=== PATIENT | female | born 1995 | race Caucasian/White ===

== ENCOUNTER 2016-10-18 20:49 | Emergency (ER) | payer OTHER, MEDICAID ==
[~2016-10-18] VITALS: Ht 157.5 cm; Wt 73.0 kg
[2016-10-18 20:52] VITALS: BP 121/79; PULSE 114; RESP 20; TEMP 100.4; O2SAT 96
--- NOTE | 2016-10-18 23:49 | PD ---
HPI Chief Complaint: Cold / Flu Symptoms Time Seen by Provider: 23:41 Travel History International Travel<30 days: No Contact w/Intl Traveler<30days: No Traveled to known affect area: No History of Present Illness HPI The patient is a 21-year-old female that complains of some gradual onset left parietal headaches and nausea for a week. She does not have a cough but states when she takes a deep breath it hurts her chest. She denies any fever and denies any vomiting. She does not smoke. PFSH Past Medical History Medical History: Denies Significant Hx Diminished Hearing: No Immunizations Current: Yes Tetanus Vaccination: Unknown Influenza Vaccination: No ?: Unknown LMP: 2 WEEKS AGO : 1 Para: 0 Ectopic : No Ovarian Cysts: No Dilation and Curettage (D&C): No Tubal Ligation: No Past Surgical History Section: No Hysterectomy: No Other Surgery: Yes ([place] teeth extraction) Social History Alcohol Use: No Tobacco Use: No Substance Use: No Allergies-Medications (Allergen,Severity, Reaction): Coded Allergies: No Known Allergies (Verified , 10/18/16) Reported Meds & Prescriptions Reported Meds & Active Scripts Active No Active Prescriptions or Reported Medications Review of Systems Except as stated in HPI: all other systems reviewed are Neg Physical Exam Narrative GENERAL: The patient is alert, oriented 3 in no respiratory distress. Her vital signs show heart rate 114 and temperature 100.4 but are otherwise normal. SKIN: Warm and dry. HEAD: Atraumatic. Normocephalic. EYES: Pupils equal and round. No scleral icterus. No injection or drainage. ENT: No nasal bleeding or discharge. Mucous membranes pink and moist. NECK: Trachea midline. No JVD. CARDIOVASCULAR: Regular rate and rhythm. No murmur appreciated. RESPIRATORY: No accessory muscle use. Clear to auscultation. Breath sounds equal bilaterally. GASTROINTESTINAL: Abdomen soft, non-tender, nondistended. Hepatic and splenic margins not palpable. No guarding or rebound is present. MUSCULOSKELETAL: No obvious deformities. No clubbing. No cyanosis. No edema. NEUROLOGICAL: Awake and alert. No obvious cranial nerve deficits. Motor grossly within normal limits. Normal speech. PSYCHIATRIC: Appropriate mood and affect; insight and judgment normal. Data Data Last Documented VS Vital Signs Date Time Temp Pulse Resp B/P Pulse Ox O2 Delivery O2 Flow Rate FiO2 10/18/16 23:43 Room Air 10/18/16 20:52 100.4 114 20 121/79 96 Orders Urinalysis - C+S If Indicated (10/18/16 23:47) Ed Urine Pregnancytest Poc (10/18/16 23:47) Complete Blood Count With Diff (10/18/16 23:49) Basic Metabolic Panel (Bmp) (10/18/16 23:49) Labs Laboratory Tests Test 10/19/16 00:02 White Blood Count 4.2 TH/MM3 Red Blood Count 4.58 MIL/MM3 Hemoglobin 13.0 GM/DL Hematocrit 39.7 % Mean Corpuscular Volume 86.7 FL Mean Corpuscular Hemoglobin 28.3 PG Mean Corpuscular Hemoglobin 32.7 % Concent Red Cell Distribution Width 12.6 % Platelet Count 183 TH/MM3 Mean Platelet Volume 9.0 FL Neutrophils (%) (Auto) 74.7 % Lymphocytes (%) (Auto) 18.1 % Monocytes (%) (Auto) 6.9 % Eosinophils (%) (Auto) 0.1 % Basophils (%) (Auto) 0.2 % Neutrophils # (Auto) 3.1 TH/MM3 Lymphocytes # (Auto) 0.8 TH/MM3 Monocytes # (Auto) 0.3 TH/MM3 Eosinophils # (Auto) 0.0 TH/MM3 Basophils # (Auto) 0.0 TH/MM3 CBC Comment DIFF FINAL Differential Comment Urine Color YELLOW Urine Turbidity SLIGHT Urine pH 7.0 Urine Specific [place] 1.021 Urine Protein NEG mg/dL Urine Glucose (UA) NEG mg/dL Urine Ketones TRACE mg/dL Urine Occult Blood NEG Urine Nitrite NEG Urine Bilirubin NEG Urine Leukocyte Esterase NEG Urine RBC 0-2 /hpf Urine WBC 3-5 /hpf Urine Squamous Epithelial 6-8 /hpf Cells Urine Amorphous Sediment FEW Urine Bacteria OCC /hpf Microscopic Urinalysis Comment CULT NOT INDICATED Sodium Level 138 MEQ/L Potassium Level 3.3 MEQ/L Chloride Level 102 MEQ/L Carbon Dioxide Level 29.4 MEQ/L Anion Gap 7 MEQ/L Blood Urea Nitrogen 9 MG/DL Creatinine 0.75 MG/DL Estimat Glomerular Filtration 98 ML/MIN Rate Random Glucose 134 MG/DL Calcium Level 8.8 MG/DL MDM Medical Decision Making Medical Screen Exam Complete: Yes Emergency Medical Condition: Yes Medical Record Reviewed: Yes Interpretation(s) The urine test was negative. The CBC is normal with a somewhat low normal white count of 4200. The basic metabolic profile shows a potassium of 3.3 but is otherwise unremarkable. The urine shows trace ketones but is otherwise normal and culture is not indicated. Differential Diagnosis Viral syndrome, , urinary tract infection, dehydration, electrolyte disorder Narrative Course The patient appears to have a viral syndrome. The low white count and lack of physical findings for bacterial illness suggest virus. Diagnosis Primary Impression: Viral syndrome Additional Instructions: As we discussed, your potassium is minimally low and so you should drink fruit juices. This is good when you have a virus also. Med/Other Pt SpecificInfo: Prescription(s) given Scripts Promethazine (Phenergan)25 Mg Tab25 Mg PO Q6H PRN (Nausea/Vomiting) #20 TAB Ref 0 Prov:Alek Johnson MD 10/19/16 Disposition: 01 DISCHARGE HOME Condition: Stable Alek Johnson MD Oct 18, 2016 23:48
[2016-10-19 00:27] LABS: BLOOD, URINE NEG (NEG); GLUCOSE,URINE NEG (NEG); KETONE, URINE TRACE mg/dL (NEG); NITRITE,URINE NEG (NEG)
[2016-10-19 00:28] LABS: AUTOMATED NEUTROPHIL # 3.1 TH/MM3 (1.8-7.7); BASOPHIL % 0.2 % (0.0-2.0); EOSINOPHIL % 0.1 % (0.0-4.0); HEMATOCRIT 39.7 % (35.0-46.0); HEMO FLAGS DIFF FINAL; LYMPH % 18.1 % (9.0-44.0); LYMPHOCYTE # 0.8 TH/MM3 (1.0-4.8); MEAN CELL VOLUME 86.7 FL (80.0-100.0); MEAN CORPUSCULAR HEMOGLOBIN 28.3 PG (27.0-34.0); MEAN CORPUSCULAR HGB CONC 32.7 % (32.0-36.0); MONO % 6.9 % (0.0-8.0); NEUT % 74.7 % (16.0-70.0); PLATELET COUNT 183 TH/MM3 (150-450); RED BLOOD COUNT 4.58 MIL/MM3 (4.00-5.30); RED CELL DISTRIBUTION WIDTH 12.6 % (11.6-17.2); WHITE BLOOD COUNT 4.2 TH/MM3 (4.0-11.0)
[2016-10-19 00:33] LABS: BACTERIA, URINE OCC /hpf; RBC, URINE 0-2 /hpf (0-3); URINE COLOR YELLOW (YELLW/STRAW)
[2016-10-19 00:34] LABS: COMMENT (UR) CULT NOT INDICATED; CULTURE IF INDICATED CULT NOT INDICATED
[2016-10-19 00:35] LABS: POTASSIUM 3.3 MEQ/L (3.5-5.1)
[2016-10-19 00:38] LABS: BICARBONATE 29.4 MEQ/L (21.0-32.0)
[2016-10-19] MEDS ORDERED: PROM25TA5 PO (00:57)
[2016-10-19] MEDS ORDERED: POTASSIUM CHLORIDE 20 MEQ CONTROLLED RELEASE TAB PO ONE (01:00)
[2016-10-19 01:15] VITALS: BP 108/69; TEMP 99.7
== END 2016-10-19 01:31 | disposition home or self-care (01) ==
LOC: PHED 20:49
DX: B34.9 Viral infection, unspecified (principal)
CPT/HCPCS: 80048; 81001; 84703; 85025; 99284

== ENCOUNTER 2017-01-16 15:54 | Emergency (ER) | payer OTHER, MEDICAID ==
[~2017-01-16] VITALS: Ht 157.5 cm; Wt 74.0 kg
[~2017-01-16 15:54] MED LIST: PROM25TA5 PO
[2017-01-16 16:06] VITALS: BP 113/76; PULSE 92; RESP 16; TEMP 98.5; O2SAT 99
--- NOTE | 2017-01-16 16:36 | PD ---
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 Patient says that about 3 weeks ago she had an done by taking a pill at the clinic. Soon after she had vaginal bleeding along with passing tissue that went on for a week to week and a half. The bleeding had stopped significantly and so had the cramps after that. However for past 1 week she has started to bleed again and passing large clots. She has been shaky, nauseous and just not feeling well. She had an ultrasound done prior to getting the pill. He was supposed to go back for a recheck which she never did since she could not get time off from work. No history of fever or chills. No history of trauma. Patient is A1. Her vital signs were acceptable in the triage. [facility] Past Medical History Narrative Medical List of her past medical, surgical, social and family history is reviewed from the nursing note. Medical History: Denies Significant Hx Diminished Hearing: No Immunizations Current: Yes ?: Not LMP: 11/03/16 : 1 Para: 0 : 1 Ectopic : No Ovarian Cysts: No Dilation and Curettage (D&C): No Tubal Ligation: No Past Surgical History Surgical History: No Previous Surgery Section: No Hysterectomy: No Social History Alcohol Use: Yes (WEEKENDS) Tobacco Use: No Substance Use: No Allergies-Medications (Allergen,Severity, Reaction): Coded Allergies: No Known Allergies (Verified , 01/16/17) Comments No known drug allergies. Reported Meds & Prescriptions Reported Meds & Active Scripts Active Misoprostol 200 Mcg Tab 600 Mcg PO Q6HR 1 Days Narrative Medication List of her home medications reviewed from the nursing note. Review of Systems Except as stated in HPI: all other systems reviewed are Neg Physical Exam Narrative GENERAL: Awake, alert, no obvious distress SKIN: Focused skin assessment warm/dry. HEAD: Atraumatic. Normocephalic. EYES: Pupils equal and round. No scleral icterus. No injection or drainage. ENT: No nasal bleeding or discharge. Mucous membranes pink and moist. NECK: Trachea midline. No JVD. CARDIOVASCULAR: Regular rate and rhythm. No murmur appreciated. RESPIRATORY: No accessory muscle use. Clear to auscultation. Breath sounds equal bilaterally. GASTROINTESTINAL: Abdomen soft, non-tender, nondistended. Hepatic and splenic margins not palpable. MUSCULOSKELETAL: No obvious deformities. No clubbing. No cyanosis. No edema. NEUROLOGICAL: Awake and alert. No obvious cranial nerve deficits. Motor grossly within normal limits. Normal speech. PSYCHIATRIC: Appropriate mood and affect; insight and judgment normal. Data Data Last Documented VS Orders Beta Hcg (Quant/Titer) (01/16/17 16:41) Complete Blood Count With Diff (01/16/17 16:41) Basic Metabolic Panel (Bmp) (01/16/17 16:41) Type And Screen (01/16/17 16:41) Us Pelvis (Ques Pr/Ect)W Trans (01/16/17 ) Sodium Chlor 0.9% 1000 Ml Inj (Ns 1000 M (01/16/17 16:45) Labs MDM Medical Decision Making Medical Screen Exam Complete: Yes Emergency Medical Condition: Yes Medical Record Reviewed: Yes Differential Diagnosis Incomplete , menstruation, dysfunctional uterine bleeding Narrative Course 5:02 PM awaiting for the blood test and ultrasound. I have ordered 1 L of IV fluid bolus for the patient. 6:40 PM blood test results of back and patient has beta hCG count in 600s. Ultrasound is here. Awaiting for the test to be completed and reported. Case will be signed over to the oncoming ER physician at 7 PM. Procedures EKG Prior to Arrival: No Scripts Misoprostol 200 Mcg [id number] Mcg PO Q6HR 1 Day Ref 0 Prov:Onelia Argueta MD 01/16/17 Mabel Shea MD January 16, 2017 16:36 Mean Corpuscular Hemoglobin 29.3 PG Mean Corpuscular Hemoglobin 32.8 % Concent Red Cell Distribution Width 13.1 % Platelet Count 213 TH/MM3 Mean Platelet Volume 9.0 FL Neutrophils (%) (Auto) 55.6 % Lymphocytes (%) (Auto) 35.0 % Monocytes (%) (Auto) 7.7 % Eosinophils (%) (Auto) 1.2 % Basophils (%) (Auto) 0.5 % Neutrophils # (Auto) 2.9 TH/MM3 Lymphocytes # (Auto) 1.8 TH/MM3 Monocytes # (Auto) 0.4 TH/MM3 Eosinophils # (Auto) 0.1 TH/MM3 Basophils # (Auto) 0.0 TH/MM3 CBC Comment DIFF FINAL Differential Comment Sodium Level 143 MEQ/L Potassium Level 3.7 MEQ/L Chloride Level 106 MEQ/L Carbon Dioxide Level 28.6 MEQ/L Anion Gap 8 MEQ/L Blood Urea Nitrogen 13 MG/DL Creatinine 0.72 MG/DL Estimat Glomerular Filtration 102 ML/MIN Rate Random Glucose 90 MG/DL Calcium Level 8.9 MG/DL Human Chorionic Gonadotropin, 573 MIU/ML Quant MDM Medical Decision Making Medical Screen Exam Complete: Yes Emergency Medical Condition: Yes Medical Record Reviewed: Yes Differential Diagnosis Incomplete , menstruation, dysfunctional uterine bleeding Narrative Course 5:02 PM awaiting for the blood test and ultrasound. I have ordered 1 L of IV fluid bolus for the patient. 6:40 PM blood test results of back and patient has beta hCG count in 600s. Ultrasound is here. Awaiting for the test to be completed and reported. Case will be signed over to the oncoming ER physician at 7 PM. Procedures EKG Prior to Arrival: No Scripts No Active Prescriptions or Reported Meds Mabel Shea MD January 16, 2017 16:36
[2017-01-16] MEDS ORDERED: SODIUM CHLOR 0.9% 1000 ML INJ 1,000 ML IV ONE (16:45)
[2017-01-16 17:03] LABS: AUTOMATED NEUTROPHIL # 2.9 TH/MM3 (1.8-7.7); BASOPHIL % 0.5 % (0.0-2.0); EOSINOPHIL # 0.1 TH/MM3 (0-0.4); EOSINOPHIL % 1.2 % (0.0-4.0); HEMO FLAGS DIFF FINAL; LYMPHOCYTE # 1.8 TH/MM3 (1.0-4.8); MEAN CELL VOLUME 89.5 FL (80.0-100.0); MEAN CORPUSCULAR HEMOGLOBIN 29.3 PG (27.0-34.0); MEAN CORPUSCULAR HGB CONC 32.8 % (32.0-36.0); MONO % 7.7 % (0.0-8.0); NEUT % 55.6 % (16.0-70.0); PLATELET COUNT 213 TH/MM3 (150-450); RED BLOOD COUNT 4.13 MIL/MM3 (4.00-5.30); RED CELL DISTRIBUTION WIDTH 13.1 % (11.6-17.2); WHITE BLOOD COUNT 5.2 TH/MM3 (4.0-11.0)
[2017-01-16 17:14] LABS: POTASSIUM 3.7 MEQ/L (3.5-5.1)
[2017-01-16 17:17] LABS: BICARBONATE 28.6 MEQ/L (21.0-32.0)
[2017-01-16 19:23] VITALS: BP 113/61; PULSE 76; O2SAT 99
--- NOTE | 2017-01-16 19:23 | RADHPO ---
EXAM DATE/TIME: 01/16/2017 17:53 [place] COMPARISON: No previous studies available for comparison. INDICATIONS : Pelvic bleeding and pain. LAB(S): Beta-hC MEDICAL HISTORY : . SURGICAL HISTORY : [place] teeth. ENCOUNTER: Initial ACUITY: 1 week PAIN SCORE: 3/10 LOCATION: Bilateral pelvis MEASUREMENTS: UTERUS: 8.7 x 5.3 x 4.7 cm ENDOMETRIAL STRIPE: 15 mm RIGHT OVARY: 2.9 x 2.6 x 2.1 cm LEFT OVARY: 2.5 x 2.1 x 1.3 cm FREE FLUID: Yes, posterior cul de sac CROWN RUMP LENGTH: Nonvisualized = WKS DAYS FHR: Nonvisualized BPM FINDINGS: UTERUS: The endometrium appears heterogeneous. There does appear to be a cystic area seen at th e lower uterine segment in the endometrial cavity measuring 1.5 x 0.5 x 0.9 cm. A yolk sac or embryo inge pole is not seen. There appears to be a hypoechoic 1.3 x 0.6 x 1.0 cm focal area within the more superior aspect of the endometrial cavity. A gestational sac with a normal yolk sac and embryonic p ole is not clearly confirmed. RIGHT OVARY: The right ovary is normal in size. Small follicles are seen. LEFT OVARY: The left ovary is normal in size. Small follicles are seen. MISCELLANEOUS: There is a mild amount of free fluid seen in the cul-de-sac. CONCLUSION: Heterogeneity to the endometrial cavity with mixed hypoechoic and more echogenic area s and a nonspecific cystic area in the endometrial cavity at the lower uterine segment. A recognizab le normal gestational sac is not seen. This could represent a missed . An adnexal mass is no t clearly seen. There is a small amount of free fluid in the cul-de-sac. Clinical correlation and f ollow-up is recommended. Juvenal Ramirez MD on January 16, 2017 at 19:08 Board Certified Radiologist. This report was verified electronically.
--- NOTE | 2017-01-16 19:41 | PD ---
Physical Exam Date Seen by Provider: January 16, 2017 Narrative Care was assumed at 7 PM pending ultrasound. Patient is 3 weeks status post an elective AB which was accomplished by taking a pill. She comes in tonight because of recurrence of heavy bleeding. She states that she has not had an opportunity to follow up at the clinic. 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 Data Data Last Documented VS Vital Signs Date Time Temp Pulse Resp B/P Pulse Ox O2 Delivery O2 Flow Rate FiO2 01/16/17 19:23 76 113/61 99 Room Air 01/16/17 16:06 98.5 16 Orders Beta Hcg (Quant/Titer) (01/16/17 16:41) Complete Blood Count With Diff (01/16/17 16:41) Basic Metabolic Panel (Bmp) (01/16/17 16:41) Type And Screen (01/16/17 16:41) Us Pelvis (Ques Pr/Ect)W Trans (01/16/17 ) Sodium Chlor 0.9% 1000 Ml Inj (Ns 1000 M (01/16/17 16:45) Labs Laboratory Tests Test 01/16/17 16:55 White Blood Count 5.2 TH/MM3 Red Blood Count 4.13 MIL/MM3 Hemoglobin 12.1 GM/DL Hematocrit 37.0 % Mean Corpuscular Volume 89.5 FL Mean Corpuscular Hemoglobin 29.3 PG Mean Corpuscular Hemoglobin 32.8 % Concent Red Cell Distribution Width 13.1 % Platelet Count 213 TH/MM3 Mean Platelet Volume 9.0 FL Neutrophils (%) (Auto) 55.6 % Lymphocytes (%) (Auto) 35.0 % Monocytes (%) (Auto) 7.7 % Eosinophils (%) (Auto) 1.2 % Basophils (%) (Auto) 0.5 % Neutrophils # (Auto) 2.9 TH/MM3 Lymphocytes # (Auto) 1.8 TH/MM3 Monocytes # (Auto) 0.4 TH/MM3 Eosinophils # (Auto) 0.1 TH/MM3 Basophils # (Auto) 0.0 TH/MM3 CBC Comment DIFF FINAL Differential Comment Sodium Level 143 MEQ/L Potassium Level 3.7 MEQ/L Chloride Level 106 MEQ/L Carbon Dioxide Level 28.6 MEQ/L Anion Gap 8 MEQ/L Blood Urea Nitrogen 13 MG/DL Creatinine 0.72 MG/DL Estimat Glomerular Filtration 102 ML/MIN Rate Random Glucose 90 MG/DL Calcium Level 8.9 MG/DL Human Chorionic Gonadotropin, 573 MIU/ML Quant Blood Type A POSITIVE Antibody Screen NEGATIVE MDM Supervised Visit with EDOUARD: No Narrative Course CBC Diagram 01/16/17 16:55 Quantitative hCG is 573. US>> Heterogeneity to the endometrial cavity with mixed hypoechoic and more echogenic areas and a nonspecific cystic area in the endometrial cavity at the lower uterine segment. A recognizable normal gestational sac is not seen. This could represent a missed . An adnexal mass is not clearly seen. There is a small amount of free fluid in the cul-de-sac. Clinical correlation and follow-up is recommended. Physician Communication Physician Communication Case discussed with Dr. Garcia who recommends misoprostol 600 mcg every 6 hours for 4 doses and follow up in their office at 8:30 tomorrow. Diagnosis Primary Impression: Incomplete Referrals: Keiry Garcia MD Patient Instructions: General Instructions, Miscarriage (DC) Additional Instruction: Expect heavy bleeding--up to 1 super maxi pad every 30 minutes for 2 hours. For bleeding heavier than that, go to the ED in [facility]. Otherwise, be at Dr. Brown/Dr. Garcia's office at 8:30 tomorrow. Med/Other Pt SpecificInfo: Prescription(s) given Scripts Misoprostol 200 Mcg [id number] Mcg PO Q6HR 1 Day Ref 0 Prov:Onelia Argueta MD 01/16/17 Disposition: 01 DISCHARGE HOME Condition: Stable Onelia Argueta MD January 16, 2017 19:41
[2017-01-16] MEDS ORDERED: MISO200T PO (19:49)
== END 2017-01-16 20:13 | disposition home or self-care (01) ==
LOC: PHED 15:54
DX: O03.4 Incomplete spontaneous abortion without complication (principal)
CPT/HCPCS: 76700; 76817; 80048; 84702; 85025; 86850; 86900; 86901; 96360; 99284; J7030